=== PATIENT | female | born 2000 | race Caucasian/White ===

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

== ENCOUNTER 2019-02-24 16:01 | Emergency (ER) | payer MEDICAID ==
--- NOTE | 2019-02-24 16:23 | EDM.PDOC ---
ED HPI GENERAL MEDICAL PROBLEM - General Chief Complaint: Neurological Problem Stated Complaint: seizure disorder Time Seen by Provider: 02/24/19 16:15 Source of Information: Reports: Patient History Limitations: Reports: No Limitations - History of Present Illness INITIAL COMMENTS - FREE TEXT/NARRATIVE: Is a 18-year-old female who is currently has a known history of seizures which she is on Keppra. Patient had a seizure 2 days ago after missing her morning dose of Keppra. She is followed by neurologist in [facility]. She feels similar to how she is felt in the past prior to having seizures. This includes left sided muscle spasms and feeling lightheaded. H she has been taking her meds and is not been drinking any alcohol. She denies a current headache or vomiting or diarrhea. Patient has been eating meals. Denies any numbness or paresthesias. Duration: Day(s): (2) Severity: Mild Improves with: Reports: None Worsens with: Reports: None Associated Symptoms: Reports: No Other Symptoms - Related Data Allergies Allergy/AdvReac Type Severity Reaction Status Date / Time No Known Allergies Allergy Verified 02/24/19 16:21 Home Meds: Home Meds Sertraline [Zoloft] 50 mg PO DAILY 12/08/18 [History] levETIRAcetam [Keppra] 500 mg PO BID 12/08/18 [History] Past Medical History - Past Health History Medical/Surgical History: Denies Medical/Surgical History HEENT History: Reports: None Cardiovascular History: Reports: None Respiratory History: Reports: None Gastrointestinal History: Reports: None Genitourinary History: Reports: None IMPROVEMENT RN History: Reports: None Musculoskeletal History: Reports: Other (See Below) 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 Neurological History: Reports: Cerebral Palsy, Seizure Psychiatric History: Reports: Anxiety, Depression Endocrine/Metabolic History: Reports: None Hematologic History: Reports: None Immunologic History: Reports: None Oncologic (Cancer) History: Reports: None Dermatologic History: Reports: None - Infectious Disease History Infectious Disease History: Reports: None - Past Surgical History Head Surgeries/Procedures: Reports: None HEENT Surgical History: Reports: None Cardiovascular Surgical History: Reports: None Respiratory Surgical History: Reports: None GI Surgical History: Reports: None Female Surgical History: Reports: None Endocrine Surgical History: Reports: None Neurological Surgical History: Reports: None Musculoskeletal Surgical History: Reports: Other (See Below) Other Musculoskeletal Surgeries/Procedures:: achiles tendon lengthened left side Oncologic Surgical History: Reports: None Dermatological Surgical History: Reports: None Social & Family History - Family History Family Medical History: Noncontributory - Caffeine Use Caffeine Use: Reports: None ED ROS GENERAL - Review of Systems Review Of Systems: Comprehensive ROS is negative, except as noted in HPI. ED EXAM, NEURO - Physical Exam Exam: See Below Text/Narrative:: Exam: See Below Exam Limited By: No Limitations Head: Atraumatic Neck: Normal Inspection. No: Carotid Bruit, Lymphadenopathy (R) Respiratory/Chest: No Respiratory Distress, Lungs Clear, Normal Breath Sounds, No Accessory Muscle Use. No: Chest Non-Tender Cardiovascular: Normal Peripheral Pulses, Regular Rate, Rhythm, No Edema, No JVD GI/Abdominal: Normal Bowel Sounds, Tender. No: Non-Tender, Splenomegaly Back Exam: Normal Inspection. No: CVA Tenderness (R) Extremities: Normal Inspection. No: No Pedal Edema Neurological: Alert, Oriented, Normal Cognition Psychiatric: Normal Affect Skin Exam: Warm Lymphatic: No Adenopathy Course - Vital Signs Last Recorded V/S: Last Vital Signs Temp 36.2 C 02/24/19 17:26 Pulse 73 02/24/19 17:26 Resp 16 02/24/19 17:26 BP 107/73 02/24/19 17:26 Pulse Ox 99 02/24/19 17:26 - Orders/Labs/Meds Orders: Active Orders 24 hr Category Date Time Status LEVETIRACETAM, S [REF] Stat Lab 02/24/19 16:16 Received Labs: Laboratory Tests 02/24/19 02/24/19 Range/Units 16:16 16:16 WBC 9.69 (4.0-11.0) K/uL RBC 4.74 (4.30-5.90) M/uL Hgb 13.6 (12.0-16.0) g/dL Hct 40.6 (36.0-46.0) % MCV 85.7 (80.0-98.0) fL MCH 28.7 (27.0-32.0) pg MCHC 33.5 (31.0-37.0) g/dL RDW Std Deviation 40.5 (28.0-62.0) fl RDW Coeff of Lopez 13 (11.0-15.0) % Plt Count 208 (150-400) K/uL MPV 10.40 (7.40-12.00) fL Neut % (Auto) 66.9 (48.0-80.0) % Lymph % (Auto) 23.1 (16.0-40.0) % Wells % (Auto) 9.3 (0.0-15.0) % Eos % (Auto) 0.7 (0.0-7.0) % Baso % (Auto) 0.0 (0.0-1.5) % Neut # (Auto) 6.5 H (1.4-5.7) K/uL Lymph # (Auto) 2.2 (0.6-2.4) K/uL Wells # (Auto) 0.9 H (0.0-0.8) K/uL Eos # (Auto) 0.1 (0.0-0.7) K/uL Baso # (Auto) 0.0 (0.0-0.1) K/uL Nucleated RBC % 0.0 /100WBC Nucleated RBCs # 0 K/uL Sodium 138 (136-145) mmol/L Potassium 3.9 (3.5-5.1) mmol/L Chloride 101 (98-107) mmol/L Carbon Dioxide 25.9 (21.0-32.0) mmol/L BUN 5 L (7.0-18.0) mg/dL Creatinine 0.6 (0.6-1.0) mg/dL Est Cr Clr Drug Dosing 146.66 mL/min Estimated GFR (MDRD) > 60.0 ml/min Glucose 77 (74-106) mg/dL Calcium 8.7 (8.5-10.1) mg/dL Total Bilirubin 0.3 (0.2-1.0) mg/dL AST 16 (15-37) IU/L ALT 14 (14-63) IU/L Alkaline Phosphatase 42 L (46-116) U/L Total Protein 7.7 (6.4-8.2) g/dL Albumin 3.4 (3.4-5.0) g/dL Globulin 4.3 H (2.6-4.0) g/dL Albumin/Globulin Ratio 0.8 L (0.9-1.6) - Re-Assessments/Exams Free Text/Narrative Re-Assessment/Exam: 02/24/19 17:28 Lab work is normal. Keppra level is a send out and will not be back today. Patient is asking if she can take half of 1 of her tablets when she is at home since she feels pre-seizure like. I have told her she can until she contacts her neurologist which I am encouraging her to do as soon as possible. Her neurologist is in [facility]. We will call her if her Keppra level is high or low. She should return to ER if symptoms are worse. Departure - Departure Time of Disposition: 17:28 Disposition: Home, Self-Care 01 Condition: Good Clinical Impression: Light-headedness - Discharge Information Instructions: Epilepsy, [id number], Dizziness, [id number] Referrals: PCP,Unobtain [Primary Care Provider] - Forms: ED Department Discharge Additional Instructions: Contact your neurologist as soon as possible. We will call you if your Keppra level is either high or low. Return to ER if repeat seizure you are feeling worse. The following information is given to patients seen in the emergency department who are being discharged to home. This information is to outline your options for follow-up care. We provide all patients seen in our emergency department with a follow-up referral. The need for follow-up, as well as the timing and circumstances, are variable depending upon the specifics of your emergency department visit. If you don't have a primary care physician on staff, we will provide you with a referral. We always advise you to contact your personal physician following an emergency department visit to inform them of the circumstance of the visit and for follow-up with them and/or the need for any referrals to a consulting specialist. The emergency department will also refer you to a specialist when appropriate. This referral assures that you have the opportunity for follow-up care with a specialist. All of these measure are taken in an effort to provide you with optimal care, which includes your follow-up. Under all circumstances we always encourage you to contact your private physician who remains a resource for coordinating your care. When calling for follow-up care, please make the office aware that this follow-up is from your recent emergency room visit. If for any reason you are refused follow-up, please contact the [facility] Emergency Department at and asked to speak to the emergency department charge nurse. Sepsis Event Note - Focused Exam Vital Signs: Vital Signs Temp Pulse Resp BP Pulse Ox 02/24/19 17:26 36.2 C 73 16 107/73 99 02/24/19 16:41 65 16 98 02/24/19 16:01 36.2 C 72 16 109/74 99 Date Exam was Performed: 02/24/19 Time Exam was Performed: 17:27 - My Orders Last 24 Hours: My Active Orders 02/24/19 16:16 LEVETIRACETAM, S [REF] Stat - Assessment/Plan Last 24 Hours: My Active Orders 02/24/19 16:16 LEVETIRACETAM, S [REF] Stat
[2019-02-24 17:07] LABS: BLOOD UREA NITROGEN,BUN 5 mg/dL (7.0-18.0); CARBON DIOXIDE,CO2 25.9 mmol/L (21.0-32.0); CHLORIDE,CL 101 mmol/L (98-107); GLUCOSE RANDOM 77 mg/dL (74-106); POTASSIUM,K 3.9 mmol/L (3.5-5.1); SODIUM,NA 138 mmol/L (136-145)
[2019-02-24 17:26] VITALS: BP 107/73; PULSE 73
== END 2019-02-24 17:57 | disposition home or self-care (01) ==
LOC: MW.ED 16:01
DX: R42 Dizziness and giddiness (principal); F41.9 Anxiety disorder, unspecified; F32.9 Major depressive disorder, single episode, unspecified; Z79.899 Other long term (current) drug therapy
CPT/HCPCS: 36415; 80053; 80177; 85025; 99282; 99284

== ENCOUNTER 2019-04-01 16:59 | Emergency (ER) | payer MEDICAID ==
--- NOTE | 2019-04-01 19:28 | EDM.PDOC ---
ED HPI GENERAL MEDICAL PROBLEM - General Chief Complaint: Neuro Symptoms/Deficits Stated Complaint: POSSIBLE SEIZURE Time Seen by Provider: 04/01/19 17:10 Source of Information: Reports: Patient, Family (mother) History Limitations: Reports: No Limitations - History of Present Illness INITIAL COMMENTS - FREE TEXT/NARRATIVE: This 18 year old female is admitted to the ED with a chief complaint of having a seizure while soaking her back in a tub a warm water. She has a history of seizure for 5 years. She is 25 weeks and is taking Keppra 750mg BID. She states that this is the only medication that is safe for her baby. She states that she feels that the dose is not enough. The mother who witness the seizure said that it was shaking of all extremities. She states that the seizure lasted for less than one minute. She never lost consciousness but was slow to respond and that she looked tired. No loss of bladder control. 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: Reports: Musculoskeletal History: Reports: Other (See Below) 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 Neurological History: Reports: Cerebral Palsy, Seizure Psychiatric History: Reports: Anxiety, Depression Endocrine/Metabolic History: Reports: None Hematologic History: Reports: None Immunologic History: Reports: None Oncologic (Cancer) History: Reports: None Dermatologic History: Reports: None - Infectious Disease History Infectious Disease History: Reports: None - Past Surgical History Head Surgeries/Procedures: Reports: None HEENT Surgical History: Reports: None Cardiovascular Surgical History: Reports: None Respiratory Surgical History: Reports: None GI Surgical History: Reports: None Female Surgical History: Reports: None Endocrine Surgical History: Reports: None Neurological Surgical History: Reports: None Musculoskeletal Surgical History: Reports: Other (See Below) Other Musculoskeletal Surgeries/Procedures:: achiles tendon lengthened left side Oncologic Surgical History: Reports: None Dermatological Surgical History: Reports: None Social & Family History - Family History Family Medical History: Noncontributory - Tobacco Use Smoking Status *Q: Never Smoker - Caffeine Use Caffeine Use: Reports: Coffee - Recreational Drug Use Recreational Drug Use: No ED ROS GENERAL - Review of Systems Review Of Systems: See Below Constitutional: Reports: No Symptoms HEENT: Reports: No Symptoms Respiratory: Reports: No Symptoms Cardiovascular: Reports: No Symptoms Endocrine: Reports: No Symptoms GI/Abdominal: Reports: No Symptoms : Reports: No Symptoms Musculoskeletal: Reports: No Symptoms Skin: Reports: No Symptoms Neurological: Reports: Seizure (lasted less than one minute (shaking of all extremities)) Psychiatric: Reports: No Symptoms - Physical Exam Exam: See Below Exam Limited By: No Limitations General Appearance: Alert, WD/WN, No Apparent Distress Eye Exam: Bilateral Eye: EOMI, Normal Inspection, PERRL (3.4mm) Ears: Normal External Exam, Normal Canal, Hearing Grossly Normal, Normal TMs Nose: Normal Inspection, Normal Mucosa, No Blood Throat/Mouth: Normal Inspection, Normal Lips, Normal Teeth, Normal Gums, Normal Oropharynx, Normal Voice, No Airway Compromise Head Exam: Atraumatic, Normocephalic Neck: Normal Inspection, Supple, Non-Tender, Full Range of Motion Respiratory/Chest: No Respiratory Distress, Lungs Clear, Normal Breath Sounds, No Accessory Muscle Use, Chest Non-Tender Cardiovascular: Normal Peripheral Pulses, Regular Rate, Rhythm, No Edema, No Gallop, No JVD, No Murmur, No Rub GI/Abdominal: Normal Bowel Sounds, Soft, Non-Tender, No Organomegaly, No Distention, No Abnormal Bruit, No Mass, Other (fundal height is 2 inches above the unbilicus) (Female) Exam: Deferred Rectal (Female) Exam: Deferred Neuro Exam (Abbreviated): Alert, Oriented, CN II-XII Intact, Normal Cognition, Normal Gait, Normal Reflexes, No Motor/Sensory Deficits DTR: 3+: Bicep (R), Bicep (L), Patella (R), Patella (L) Back Exam: Normal Inspection, Full Range of Motion, NT Extremities: Normal Inspection, Normal Range of Motion, Non-Tender, No Pedal Edema, Normal Capillary Refill Psychiatric: Normal Affect, Normal Mood Skin Exam: Warm, Dry, Intact, Normal Color, No Rash Course - Vital Signs Text/Narrative:: The patient clinical course was unremarkable. She received Keppra 750mg IV. Her vital signs remained stable through her stay. heart tones recorded by the nurse was 139/bpm. Re-evaluation of her neuro status is unremarkable. She is fully awake and alert. She will be discharged. She and her mother agrees with the discharge plan. Last Recorded V/S: Last Vital Signs Temp 96.8 F 04/01/19 17:07 Pulse 109 H 04/01/19 17:07 Resp 16 04/01/19 17:07 BP 128/38 L 04/01/19 17:07 Pulse Ox 96 04/01/19 17:07 - Orders/Labs/Meds Orders: Active Orders 24 hr Category Date Time Status HCG QUANTITATIVE [CHEM] Stat Lab 04/01/19 18:41 Received UA W/MESFIN RFLX IF INDICATED [URIN] Stat Lab 04/01/19 18:27 Ordered levETIRAcetam [Keppra] 1,000 mg Med 04/01/19 18:30 Active Dextrose 5% in Water 100 ml IV Q12H Medication Orders Levetiracetam 1,000 mg/ (Dextrose/Water) 110 mls @ 440 mls/hr IV Q12H [facility] Last Admin: 04/01/19 19:09 Dose: 440 mls/hr Meds: Medications Generic Name Dose Route Start Last Admin Trade Name Freq PRN Reason Stop Dose Admin Levetiracetam 1,000 mg/ 110 mls @ 440 mls/hr 04/01/19 18:30 04/01/19 19:09 Dextrose/Water IV 440 mls/hr Q12H D[facility]BY Administration Departure - Departure Time of Disposition: 19:37 Disposition: Home, Self-Care 01 Condition: Good Clinical Impression: Seizure disorder - Discharge Information *PRESCRIPTION DRUG MONITORING PROGRAM REVIEWED*: Yes *COPY OF PRESCRIPTION DRUG MONITORING REPORT IN PATIENT LAURA: Yes Instructions: Seizure, Adult, [id number], and Epilepsy Referrals: Susan Richardson CNM [Primary Care Provider] - Additional Instructions: Take your Keppra starting tomorrow 750mg three times a day until you see your neurologist (Dr. Gallardo) in [place], [place]. Follow up with your OB doctor in the next two to four days. Drink plenty of clear liquids for the next 24-48 hours. Rest for the next 24 hours. Return to the ED if your condition gets worse or should you have any questions or concerns. The following information is given to patients seen in the emergency department who are being discharged to home. This information is to outline your options for follow-up care. We provide all patients seen in our emergency department with a follow-up referral. The need for follow-up, as well as the timing and circumstances, are variable depending upon the specifics of your emergency department visit. If you don't have a primary care physician on staff, we will provide you with a referral. We always advise you to contact your personal physician following an emergency department visit to inform them of the circumstance of the visit and for follow-up with them and/or the need for any referrals to a consulting specialist. The emergency department will also refer you to a specialist when appropriate. This referral assures that you have the opportunity for follow-up care with a specialist. All of these measure are taken in an effort to provide you with optimal care, which includes your follow-up. Under all circumstances we always encourage you to contact your private physician who remains a resource for coordinating your care. When calling for follow-up care, please make the office aware that this follow-up is from your recent emergency room visit. If for any reason you are refused follow-up, please contact the [facility] Emergency Department at and asked to speak to the emergency department charge nurse. Sepsis Event Note - Evaluation Sepsis Screening Result: No Definite Risk - Focused Exam Vital Signs: Vital Signs Temp Pulse Resp BP Pulse Ox 04/01/19 17:07 96.8 F 109 H 16 128/38 L 96 Date Exam was Performed: 04/01/19 Time Exam was Performed: 19:20 - My Orders Last 24 Hours: My Active Orders 04/01/19 18:27 UA W/MESFIN RFLX IF INDICATED [URIN] Stat 04/01/19 18:30 levETIRAcetam [Keppra] 1,000 mg Dextrose 5% in Water 100 ml IV Q12H 04/01/19 18:41 HCG QUANTITATIVE [CHEM] Stat - Assessment/Plan Last 24 Hours: My Active Orders 04/01/19 18:27 UA W/MESFIN RFLX IF INDICATED [URIN] Stat 04/01/19 18:30 levETIRAcetam [Keppra] 1,000 mg Dextrose 5% in Water 100 ml IV Q12H 04/01/19 18:41 HCG QUANTITATIVE [CHEM] Stat
[2019-04-01 20:03] VITALS: BP 102/66; PULSE 84
== END 2019-04-01 20:03 | disposition home or self-care (01) ==
LOC: MW.ED 16:59
DX: O99.352 Diseases of the nervous system complicating pregnancy, second trimester (principal); G40.909 Epilepsy, unspecified, not intractable, without status epilepticus; Z79.899 Other long term (current) drug therapy; Z3A.25 25 weeks gestation of pregnancy
CPT/HCPCS: 36415; 84702; 96365; 99284; J1953; J7060; 99283

== ENCOUNTER 2019-06-28 00:07 | Inpatient (IN) | payer MEDICAID ==
[2019-06-28] MEDS ORDERED: Water For Irrigation,Sterile 1,000 ML Container IRR PRN (00:21)
[2019-06-28] MEDS ORDERED: Sodium Chloride 0.9% 2.5 ML Syringe FLUSH PRN (00:21)
[2019-06-28] MEDS ORDERED: Misoprostol 200 MCG Tab PO PRN (00:21)
[2019-06-28] MEDS ORDERED: Sodium Chloride 0.9% 10 ML Syringe FLUSH PRN (00:21)
[2019-06-28] MEDS ORDERED: Butorphanol 1 MG/ML SDV IVPUSH PRN (00:21)
[2019-06-28] MEDS ORDERED: Sodium Chloride 0.9% 10 ML SDV IV PRN (00:21)
[2019-06-28] MEDS ORDERED: Carboprost Tromethamine 250 MCG/1 ML Amp IM PRN (00:21)
[2019-06-28] MEDS ORDERED: Nalbuphine 10 MG/1 ML Vial IVPUSH PRN (00:21)
[2019-06-28] MEDS ORDERED: Methylergonovine 0.2 MG/1 ML Amp IM PRN (00:21)
[2019-06-28] MEDS ORDERED: Tranexamic Acid 1,000 MG in Sodium Chloride 0.9% 100 ML IV PRN (00:21)
[2019-06-28] MEDS ORDERED: Lidocaine 1% 50 ML MDV INJECT PRN (00:21)
[2019-06-28] MEDS ORDERED: Misoprostol 25 MCG (1/4 of 100 MCG) Tab VAG PRN ×2 (00:26)
[2019-06-28] MEDS ORDERED: Terbutaline 1 MG/ML SDV SUBCUT PRN (00:26)
[2019-06-28] MEDS ORDERED: Oxytocin/0.9 % Sodium Chloride 30 UNIT/500 ML BAG IV SCH ×2 (00:30)
--- NOTE | 2019-06-28 04:39 | PCM.PRNOTE ---
- Free Text/Narrative Note: Anes NOte I was called to provide IV access. A 22TN was placed inner aspect of left forearm. Runs well. 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
[2019-06-28] MEDS ORDERED: Misoprostol 25 MCG (1/4 of 100 MCG) Tab PO SCH (04:45)
[2019-06-28] MEDS: Lactated Ringers 1,000 ML IV SCH ×3 (04:52→11:54)
[2019-06-28] MEDS: levETIRAcetam 500 MG Tab PO SCH ×3 (09:34→22:54)
[2019-06-28] MEDS: carBAMazepine 200 MG Tab PO SCH ×4 (09:40→22:08)
[2019-06-28] MEDS ORDERED: fentaNYL 100 MCG/2 ML SDV ONE (10:31)
[2019-06-28] MEDS ORDERED: Ropivacaine HCl/PF 100 ML ONE (10:31)
[2019-06-28] MEDS ORDERED: Ropivacaine 0.2% PF 2 MG/ML 20 ML SDV ONE (10:31)
--- NOTE | 2019-06-28 11:55 | PCM.PREANE ---
Preanesthetic Assessment - Procedure Proposed Procedure: AURA - Anesthesia/Transfusion/Family Hx Anesthesia History: Prior Anesthesia Without Reaction Family History of Anesthesia Reaction: No Transfusion History: No Prior Transfusion(s) Intubation History: Unknown Additional History: History of CP. 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 Also has severe Scoliosis. - Review of Systems General: No Symptoms Pulmonary: No Symptoms Cardiovascular: No Symptoms Gastrointestinal: No Symptoms Neurological: Seizure, Other (CP) Other: Reports: Anxiety (Significant Scoliosis) - Physical Assessment Height: 1.68 m Weight: 86.183 kg ASA Class: 3 Mental Status: Alert & Oriented x3 Airway Class: Mallampati = 2 Dentition: Reports: Normal Dentition Thyro-Mental Finger Breadths: 3 Mouth Opening Finger Breadths: 3 ROM/Head Extension: Full Lungs: Clear to Auscultation Cardiovascular: Regular Rate - Lab Values: Laboratory Last Values WBC 9.23 K/uL (4.0-11.0) 06/28/19 02:35 RBC 4.27 M/uL (4.30-5.90) L 06/28/19 02:35 Hgb 10.9 g/dL (12.0-16.0) L 06/28/19 02:35 Hct 34.2 % (36.0-46.0) L 06/28/19 02:35 MCV 80.1 fL (80.0-98.0) 06/28/19 02:35 MCH 25.5 pg (27.0-32.0) L 06/28/19 02:35 MCHC 31.9 g/dL (31.0-37.0) 06/28/19 02:35 RDW Std Deviation 38.5 fl (28.0-62.0) 06/28/19 02:35 RDW Coeff of Lopez 13 % (11.0-15.0) 06/28/19 02:35 Plt Count 277 K/uL (150-400) 06/28/19 02:35 MPV 10.30 fL (7.40-12.00) 06/28/19 02:35 Nucleated RBC % 0.0 /100WBC 06/28/19 02:35 Nucleated RBCs # 0 K/uL 06/28/19 02:35 Blood Type O POSITIVE 06/28/19 02:35 Antibody Screen NEGATIVE 05/06/20 02:35 - Allergies Allergies/Adverse Reactions: Allergies Allergy/AdvReac Type Severity Reaction Status Date / Time No Known Allergies Allergy Verified 06/28/19 00:16 - Acknowledgements Anesthesia Type Planned: Epidural Pt an Appropriate Candidate for the Planned Anesthesia: Yes Alternatives and Risks of Anesthesia Discussed w Pt/Guardian: Yes Pt/Guardian Understands and Agrees with Anesthesia Plan: Yes Additional Comments: Discussed. Aware of issues. 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: Musculoskeletal History: Reports: Other (See Below) 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 Neurological History: Reports: Cerebral Palsy, Seizure Psychiatric History: Reports: Anxiety, Depression Endocrine/Metabolic History: Reports: None Hematologic History: Reports: None Immunologic History: Reports: None Oncologic (Cancer) History: Reports: None Dermatologic History: Reports: None - Infectious Disease History Infectious Disease History: Reports: None - Past Surgical History Head Surgeries/Procedures: Reports: None HEENT Surgical History: Reports: None Cardiovascular Surgical History: Reports: None Respiratory Surgical History: Reports: None GI Surgical History: Reports: None Female Surgical History: Reports: None Endocrine Surgical History: Reports: None Neurological Surgical History: Reports: None Musculoskeletal Surgical History: Reports: Other (See Below) Other Musculoskeletal Surgeries/Procedures:: achiles tendon lengthened left side Oncologic Surgical History: Reports: None Dermatological Surgical History: Reports: None - HOME MEDS Home Medications: Home Meds levETIRAcetam [Keppra] 750 mg PO TID 12/08/18 [History] Pnv No.95/Ferrous Fum/Folic AC [ Vitamins Tablet] 1 tab PO DAILY [History] carBAMazepine 200 mg PO TID 05/29/19 [History] - CURRENT (IN HOUSE) MEDS Current Meds: Current Medications Butorphanol Tartrate (Stadol) 1 mg IVPUSH Q1H PRN PRN Reason: Pain Carbamazepine (Tegretol Tab) 200 mg PO TID DARBY Last Admin: 06/28/19 09:40 Dose: Not Given Carboprost Tromethamine (Hemabate Ds) 250 mcg IM ASDIRECTED PRN PRN Reason: Post Hemorrhage Lactated Ringer's (Ringers, Lactated) 1,000 mls @ 150 mls/hr IV ASDIRECTED [facility] Last Admin: 06/28/19 08:27 Dose: 150 mls/hr Oxytocin/Sodium Chloride (Oxytocin 30 Unit/500 Ml-Ns) 30 unit in 500 mls @ 500 mls/hr IV TITRATE DARBY Tranexamic Acid 1,000 mg/ (Sodium Chloride) 110 mls @ 660 mls/hr IV ONETIME PRN PRN Reason: Bleeding Oxytocin/Sodium Chloride (Oxytocin 30 Unit/500 Ml-Ns) 30 unit in 500 mls @ 2 mls/hr IV TITRATE DARBY; Protocol Levetiracetam (Keppra) 750 mg PO TID [facility] Last Admin: 06/28/19 09:34 Dose: 750 mg Lidocaine HCl (Xylocaine 1%) 50 ml INJECT ONETIME PRN PRN Reason: Laceration repair Methylergonovine Maleate (Methergine) 0.2 mg IM ASDIRECTED PRN PRN Reason: Post Hemorrhage Misoprostol (Cytotec) 200 mcg PO ONETIME PRN PRN Reason: Post Hemorrhage Misoprostol (Cytotec) 25 mcg VAG ONETIME PRN PRN Reason: Cervical Ripening Misoprostol (Cytotec) 25 mcg VAG Q4H PRN PRN Reason: Cervical Ripening Last Admin: 06/28/19 04:53 Dose: 25 mcg Misoprostol (Cytotec) 25 mcg PO Q4H [facility] Last Admin: 06/28/19 04:52 Dose: 25 mcg Nalbuphine HCl (Nubain) 10 mg IVPUSH Q1H PRN PRN Reason: Pain (severe 7-10) Sodium Chloride (Saline Flush) 10 ml FLUSH ASDIRECTED PRN PRN Reason: Keep Vein Open Sodium Chloride (Saline Flush) 2.5 ml FLUSH ASDIRECTED PRN PRN Reason: Keep Vein Open Sodium Chloride (Normal Saline) 10 ml IV ASDIRECTED PRN PRN Reason: IV Use Sterile Water (Sterile Water For Irrigation) 1,000 ml IRR ASDIRECTED PRN PRN Reason: delivery Terbutaline Sulfate (Brethine) 0.25 mg SUBCUT ASDIRECTED PRN PRN Reason: Tacysystole Discontinued Medications Fentanyl (Sublimaze) Confirm Administered Dose 100 mcg .ROUTE .STK-MED ONE Stop: 06/28/19 10:32 Ropivacaine (Naropin 0.2%) Confirm Administered Dose 100 mls @ as directed .ROUTE .ST-MED ONE Stop: 06/28/19 10:32 Ropivacaine (Naropin 0.2%) Confirm Administered Dose 20 ml .ROUTE .STK-MED ONE Stop: 06/28/19 10:32
--- NOTE | 2019-06-28 12:06 | PCM.SN.2 ---
- Free Text/Narrative Note: Requested for AURA on . Significant Hx of CP, Seizures and Scoliosis. Discussed, ? answered. Permit signed. Prep with Chloro-Prep at L3-4 Total 6ml 1% lidocaine given. Space via SARA with air/saline, reconfirmed with 3ml saline. 1st pass good SARA, pt. c/o'd L sided pain which didn't resolve. Needle remove and readjusted at 2 places @ L3-4. Good SARA on 3rd pass. Cath to 8cm without issues. Occlusive drsg. TEST DOSE NEGATIVE Bolus given slowly. Pain slowly improving. VSS 11:55: Pain 03/03. Infusion started at 8ml/hr with 4ml bolus q15. Tolerated well. No problems noted at present.
--- NOTE | 2019-06-28 14:09 | PCM.DEL ---
L & D Note - General Info Date of Service: 06/28/19 Mother's Due Date: 07/12/19 - Delivery Note Labor: Augmented by Oxytocin Cervical Ripening Method: Misoprostil Delivery Outcome: Livebirth Delivery Mode: Spontaneous Presentation: Vertex Nuchal Cord: Present Anesthesia Type: Epidural Amniotic Fluid Description: Clear Episiotomy Type: None Laceration: None Placenta: Intact, Spontaneous Cord: 3 Vessels Score 1 min: 8 Score 5 min: 8 Second Stage Interventions: Reports: Pushing, Pulls Own Legs Back Delivery Comments (Free Text/Narrative):: of viable female. Head delivered with good pushing, nuchal x1 reduced over head. Shoulders and body followed. placed on mothers abd with RN at for evaluation. Delayed cord clamping. Pitocin to IVF. Cord clamped and cut. Cord blood collected. Placenta delivered grossly intact. Inspection noted intact perineum. Bimanual normal. Placenta intact with 3VC. EBL 100cc. APGARS 8/ 8. Wt: pending bonding. Mother and baby stable. Induction Criteria - Rousseau Score Rousseua Score Dilation: 3-4 cm Rousseau Score Effacement: 60-70% Rousseau Score 's Station: -2 Rousseau Score Consistency: Soft Rousseau Score Cervix Position: Anterior Rousseau Score Total: 9 Rousseau Score Presenting Part: Reports: Cephalic - Induction Gestational Age >/= 39 wks: No Medical Indication: CP, Seizures, HROB Estimated Pelvis: Reports: Adequate Reassuring Monitoring Strip: Yes Absence of Tachy Systole: Yes - General Info Date of Service: 06/28/19 Functional Status: Reports: Pain Controlled - Review of Systems General: Reports: No Symptoms HEENT: Reports: No Symptoms Pulmonary: Reports: No Symptoms Cardiovascular: Reports: No Symptoms Gastrointestinal: Reports: No Symptoms Genitourinary: Reports: No Symptoms Musculoskeletal: Reports: No Symptoms Skin: Reports: No Symptoms Neurological: Reports: No Symptoms Psychiatric: Reports: No Symptoms - Patient Data Weight - Most Recent: 86.183 kg Lab Results Last 24 Hours: Laboratory Results - last 24 hr 06/28/19 06/28/19 Range/Units 02:35 02:35 WBC 9.23 (4.0-11.0) K/uL RBC 4.27 L (4.30-5.90) M/uL Hgb 10.9 L (12.0-16.0) g/dL Hct 34.2 L (36.0-46.0) % MCV 80.1 (80.0-98.0) fL MCH 25.5 L (27.0-32.0) pg MCHC 31.9 (31.0-37.0) g/dL RDW Std Deviation 38.5 (28.0-62.0) fl RDW Coeff of Lopez 13 (11.0-15.0) % Plt Count 277 (150-400) K/uL MPV 10.30 (7.40-12.00) fL Nucleated RBC % 0.0 /100WBC Nucleated RBCs # 0 K/uL Blood Type O POSITIVE Antibody Screen NEGATIVE Med Orders - Current: Current Medications Butorphanol Tartrate (Stadol) 1 mg IVPUSH Q1H PRN PRN Reason: Pain Carbamazepine (Tegretol Tab) 200 mg PO TID [facility] Last Admin: 06/28/19 12:40 Dose: 200 mg Carboprost Tromethamine (Hemabate Ds) 250 mcg IM ASDIRECTED PRN PRN Reason: Post Hemorrhage Lactated Ringer's (Ringers, Lactated) 1,000 mls @ 150 mls/hr IV ASDIRECTED [facility] Last Admin: 06/28/19 11:54 Dose: 150 mls/hr Oxytocin/Sodium Chloride (Oxytocin 30 Unit/500 Ml-Ns) 30 unit in 500 mls @ 500 mls/hr IV TITRATE [facility] Tranexamic Acid 1,000 mg/ (Sodium Chloride) 110 mls @ 660 mls/hr IV ONETIME PRN PRN Reason: Bleeding Oxytocin/Sodium Chloride (Oxytocin 30 Unit/500 Ml-Ns) 30 unit in 500 mls @ 2 mls/hr IV TITRATE [facility]; Protocol Last Titration: 06/28/19 12:07 Dose: 4 munits/min, 4 mls/hr Levetiracetam (Keppra) 750 mg PO TID [facility] Last Admin: 06/28/19 09:34 Dose: 750 mg Lidocaine HCl (Xylocaine 1%) 50 ml INJECT ONETIME PRN PRN Reason: Laceration repair Methylergonovine Maleate (Methergine) 0.2 mg IM ASDIRECTED PRN PRN Reason: Post Hemorrhage Misoprostol (Cytotec) 200 mcg PO ONETIME PRN PRN Reason: Post Hemorrhage Misoprostol (Cytotec) 25 mcg VAG ONETIME PRN PRN Reason: Cervical Ripening Misoprostol (Cytotec) 25 mcg VAG Q4H PRN PRN Reason: Cervical Ripening Last Admin: 06/28/19 04:53 Dose: 25 mcg Misoprostol (Cytotec) 25 mcg PO Q4H [facility] Last Admin: 06/28/19 04:52 Dose: 25 mcg Nalbuphine HCl (Nubain) 10 mg IVPUSH Q1H PRN PRN Reason: Pain (severe 7-10) Sodium Chloride (Saline Flush) 10 ml FLUSH ASDIRECTED PRN PRN Reason: Keep Vein Open Sodium Chloride (Saline Flush) 2.5 ml FLUSH ASDIRECTED PRN PRN Reason: Keep Vein Open Sodium Chloride (Normal Saline) 10 ml IV ASDIRECTED PRN PRN Reason: IV Use Sterile Water (Sterile Water For Irrigation) 1,000 ml IRR ASDIRECTED PRN PRN Reason: delivery Terbutaline Sulfate (Brethine) 0.25 mg SUBCUT ASDIRECTED PRN PRN Reason: Tacysystole Discontinued Medications Fentanyl (Sublimaze) Confirm Administered Dose 100 mcg .ROUTE .STK-MED ONE Stop: 06/28/19 10:32 Ropivacaine (Naropin 0.2%) Confirm Administered Dose 100 mls @ as directed .ROUTE .STK-MED ONE Stop: 06/28/19 10:32 Ropivacaine (Naropin 0.2%) Confirm Administered Dose 20 ml .ROUTE .STK-MED ONE Stop: 06/28/19 10:32 - Exam General: Alert, Oriented, Cooperative, No Acute Distress, Mild Distress Lungs: Normal Respiratory Effort GI/Abdominal Exam: Soft, Non-Tender (Female) Exam: Normal External Exam, Normal Bimanual Exam, Vaginal Bleeding. No: Cervical Lesions, Vaginal Lesions, Vaginal Tears Back Exam: Normal Inspection Extremities: Normal Inspection, Non-Tender, No Pedal Edema Skin: Warm, Dry, Intact Wound/Incisions: Healing Well Neurological: No New Focal Deficit, Normal Speech, Normal Tone Psy/Mental Status: Alert, Normal Affect, Normal Mood - Problem List & Annotations (1) (normal spontaneous vaginal delivery) SNOMED Code(s): 85610145, 536067620 Code(s): O80 - ENCOUNTER FOR FULL-TERM UNCOMPLICATED DELIVERY Status: Acute Priority: High Current Visit: Yes - Problem List Review Problem List Initiated/Reviewed/Updated: Yes - My Orders Last 24 Hours: My Active Orders 06/28/19 09:00 carBAMazepine [TEGretol Tab] 200 mg PO TID levETIRAcetam [Keppra] 750 mg PO TID 06/28/19 Breakfast Regular Diet [DIET] - Plan Plan:: Delivery A: of viable female. APGARS 8/8, Wt: pending bonding. Intact, EBL 100cc. Stable P: Routine pp plan of care.
[2019-06-28] MEDS ORDERED: Docusate Sodium 100 MG Cap PO PRN (14:13)
[2019-06-28] MEDS ORDERED: Lanolin 100% Cream 7 GM Tube TOP PRN (14:13)
[2019-06-28] MEDS ORDERED: Ibuprofen 800 MG Tab PO PRN (14:13)
[2019-06-28] MEDS ORDERED: Witch Hazel Medicated Pads 40/Jar TOP PRN (14:13)
[2019-06-28] MEDS ORDERED: Benzocaine/Menthol 20%-0.5% Spray 78 GM Cannister TOP PRN (14:13)
[2019-06-28] MEDS ORDERED: Ibuprofen 400 MG Tab PO PRN (14:13)
[2019-06-28] MEDS ORDERED: Bisacodyl 10 MG Supp RECTAL PRN (14:13)
[2019-06-28] MEDS ORDERED: Acetaminophen 500 MG Tab PO PRN ×2 (14:13)
--- NOTE | 2019-06-28 21:23 | PCM48HPAN ---
Post Anesthesia Note - EVALUATION WITHIN 48HRS OF ANESTHETIC Vital Signs in Normal Range: Yes Patient Participated in Evaluation: Yes Respiratory Function Stable: Yes Airway Patent: Yes Cardiovascular Function Stable: Yes Hydration Status Stable: Yes Pain Control Satisfactory: Yes Nausea and Vomiting Control Satisfactory: Yes Mental Status Recovered: Yes Vital Signs: Last Vital Signs Temp 36.8 C 06/28/19 20:00 Pulse 78 06/28/19 20:00 Resp 16 06/28/19 20:00 BP 111/78 06/28/19 20:00 Pulse Ox 97 06/28/19 20:00 - COMMENTS/OBSERVATIONS Free Text/Narrative:: Did well. No problems noted.
[2019-06-29 04:16] VITALS: BP 105/77; PULSE 71
[2019-06-29] MEDS: carBAMazepine 200 MG Tab PO SCH ×2 (06:27→14:04)
[2019-06-29] MEDS: levETIRAcetam 500 MG Tab PO SCH ×2 (06:28→14:05)
--- NOTE | 2019-06-29 09:38 | PCM.PNPP ---
- General Info Date of Service: 06/29/19 Functional Status: Reports: Pain Controlled, Tolerating Diet, Ambulating - Review of Systems General: Reports: No Symptoms HEENT: Reports: No Symptoms Pulmonary: Reports: No Symptoms Cardiovascular: Reports: No Symptoms Gastrointestinal: Reports: No Symptoms Genitourinary: Reports: No Symptoms Musculoskeletal: Reports: No Symptoms Skin: Reports: No Symptoms Neurological: Reports: No Symptoms Psychiatric: Reports: No Symptoms - General Info Date of Service: 06/29/19 - Patient Data Vital Signs - Most Recent: Last Vital Signs Temp 97.9 F 06/29/19 04:00 Pulse 71 06/29/19 04:00 Resp 16 06/29/19 04:00 BP 105/77 06/29/19 04:00 Pulse Ox 96 06/29/19 04:00 Weight - Most Recent: 190 lb Lab Results - Last 24 Hours: Laboratory Results - last 24 hr 06/29/19 Range/Units 05:48 Hgb 11.3 L (12.0-16.0) g/dL Hct 35.4 L (36.0-46.0) % Med Orders - Current: Current Medications Acetaminophen (Tylenol Extra Strength) 500 mg PO Q4H PRN PRN Reason: Pain Acetaminophen (Tylenol Extra Strength) 1,000 mg PO Q4H PRN PRN Reason: Pain Last Admin: 06/29/19 03:08 Dose: 1,000 mg Benzocaine/Menthol (Dermoplast Pain Relief 20%-0.5% [place]) 78 gm TOP ASDIRECTED PRN PRN Reason: Perineal Comfort Measure Bisacodyl (Dulcolax) 10 mg RECTAL ONETIME PRN PRN Reason: Constipation Carbamazepine (Tegretol Tab) 200 mg PO TID [facility] Last Admin: 06/29/19 06:27 Dose: 200 mg Docusate Sodium (Colace) 100 mg PO BID PRN PRN Reason: Constipation Last Admin: 06/28/19 20:40 Dose: 100 mg Emollient Ointment (Lansinoh Hpa) 0 gm TOP ASDIRECTED PRN PRN Reason: Sore Nipples Ibuprofen (Motrin) 400 mg PO Q4H PRN PRN Reason: Pain Ibuprofen (Motrin) 800 mg PO Q6H PRN PRN Reason: Pain Last Admin: 06/28/19 22:09 Dose: 800 mg Levetiracetam (Keppra) 750 mg PO TID [facility] Last Admin: 06/29/19 06:28 Dose: 750 mg Witch Angelica (Tucks) 1 pad TOP ASDIRECTED PRN PRN Reason: comfort care Discontinued Medications Butorphanol Tartrate (Stadol) 1 mg IVPUSH Q1H PRN PRN Reason: Pain Carboprost Tromethamine (Hemabate Ds) 250 mcg IM ASDIRECTED PRN PRN Reason: Post Hemorrhage Fentanyl (Sublimaze) Confirm Administered Dose 100 mcg .ROUTE .[facility] ONE Stop: 06/28/19 10:32 Lactated Ringer's (Ringers, Lactated) 1,000 mls @ 150 mls/hr IV ASDIRECTED [facility] Last Admin: 06/28/19 11:54 Dose: 150 mls/hr Oxytocin/Sodium Chloride (Oxytocin 30 Unit/500 Ml-Ns) 30 unit in 500 mls @ 500 mls/hr IV TITRATE [facility] Tranexamic Acid 1,000 mg/ (Sodium Chloride) 110 mls @ 660 mls/hr IV ONETIME PRN PRN Reason: Bleeding Oxytocin/Sodium Chloride (Oxytocin 30 Unit/500 Ml-Ns) 30 unit in 500 mls @ 2 mls/hr IV TITRATE [facility]; Protocol Last Titration: 06/28/19 13:46 Dose: 999 munits/min, 999 mls/hr Ropivacaine (Naropin 0.2%) Confirm Administered Dose 100 mls @ as directed .ROUTE .[facility] ONE Stop: 06/28/19 10:32 Lidocaine HCl (Xylocaine 1%) 50 ml INJECT ONETIME PRN PRN Reason: Laceration repair Methylergonovine Maleate (Methergine) 0.2 mg IM ASDIRECTED PRN PRN Reason: Post Hemorrhage Misoprostol (Cytotec) 200 mcg PO ONETIME PRN PRN Reason: Post Hemorrhage Misoprostol (Cytotec) 25 mcg VAG ONETIME PRN PRN Reason: Cervical Ripening Misoprostol (Cytotec) 25 mcg VAG Q4H PRN PRN Reason: Cervical Ripening Last Admin: 06/28/19 04:53 Dose: 25 mcg Misoprostol (Cytotec) 25 mcg PO Q4H [facility] Last Admin: 06/28/19 04:52 Dose: 25 mcg Nalbuphine HCl (Nubain) 10 mg IVPUSH Q1H PRN PRN Reason: Pain (severe 7-10) Ropivacaine (Naropin 0.2%) Confirm Administered Dose 20 ml .ROUTE .[facility] ONE Stop: 06/28/19 10:32 Sodium Chloride (Saline Flush) 10 ml FLUSH ASDIRECTED PRN PRN Reason: Keep Vein Open Sodium Chloride (Saline Flush) 2.5 ml FLUSH ASDIRECTED PRN PRN Reason: Keep Vein Open Sodium Chloride (Normal Saline) 10 ml IV ASDIRECTED PRN PRN Reason: IV Use Sterile Water (Sterile Water For Irrigation) 1,000 ml IRR ASDIRECTED PRN PRN Reason: delivery Terbutaline Sulfate (Brethine) 0.25 mg SUBCUT ASDIRECTED PRN PRN Reason: Tacysystole - Interaction Disposition, : [place] in Room with Family Infant Interaction: Holding Infant Feeding: Bottle Fed Infant Support Person: Significant Other - Recovery Exam Fundal Tone: Firm Fundal Level: 1 Fingerbreadths Below Umbilicus Fundal Placement: Midline Lochia Amount: Small Lochia Color: Rubra/Red Perineum Description: Intact, Minimal Bruising/Swelling Episiotomy/Laceration: None Bladder Status: Voiding Urinary Elimination: Voided - Exam General: Alert, Oriented, Cooperative, No Acute Distress Lungs: Normal Respiratory Effort GI/Abdominal Exam: Soft, Non-Tender Extremities: Normal Inspection, Normal Range of Motion, Non-Tender, Normal Capillary Refill Skin: Warm, Dry, Intact Neurological: No New Focal Deficit Psy/Mental Status: Alert, Normal Affect, Normal Mood - Problem List & Annotations (1) (normal spontaneous vaginal delivery) SNOMED Code(s): 13954992, 627855066 Code(s): O80 - ENCOUNTER FOR FULL-TERM UNCOMPLICATED DELIVERY Status: Acute Priority: High Current Visit: Yes - Problem List Review Problem List Initiated/Reviewed/Updated: Yes - Plan Plan:: Delivery A: of viable female. APGARS 8/8, Wt: pending bonding. Intact, EBL 100cc. Stable P: Routine pp plan of care. PP Day 1 A: Ambulating, urinating, and eating well. Reports improving perineal swelling. Bottle feeding . Considering whether she wants to go home today or stay one more night. P: Routine plan of care.
--- NOTE | 2019-06-29 12:23 | PCM.DCSUM1 ---
Discharge Summary - Hospital Course Free Text/Narrative:: Discharge home with baby. Follow up in the clinic in 6 weeks for routine visit. Resume taking all pre- medication. Diagnosis: Stroke: No Modified Lebeau Scale: No Symptoms at All Modified Sin Scale Score: 0 - Discharge Data Discharge Date: 06/29/19 Discharge Disposition: Home, Self-Care 01 Condition: Good - Referral to Home Health Primary Care Physician: PCP None - Discharge Diagnosis/Problem(s) (1) (normal spontaneous vaginal delivery) SNOMED Code(s): 97742896, [id number] ICD Code: O80 - ENCOUNTER FOR FULL-TERM UNCOMPLICATED DELIVERY Status: Acute Priority: High Current Visit: Yes - Patient Instructions Diet: Regular Diet as Tolerated, Drink 8-10+ Glasses/Day Activity: As Tolerated, No Strenuous Activities, Rest and Relax Today Driving: May Drive Today Showering/Bathing: May Shower Wound/Incision Care: Keep Operative Site/Wound Site Clean and Dry Notify Provider of: Fever, Increased Pain, Swelling and Redness, Drainage, Nausea and/or Vomiting - Discharge Plan *PRESCRIPTION DRUG MONITORING PROGRAM REVIEWED*: Not Applicable *COPY OF PRESCRIPTION DRUG MONITORING REPORT IN PATIENT LAURA: Not Applicable Prescriptions/Med Rec: Ibuprofen [Motrin] 800 mg PO Q6H PRN #90 tablet PRN Reason: Pain Home Medications: Home Meds levETIRAcetam [Keppra] 750 mg PO TID 12/08/18 [History] Pnv No.95/Ferrous Fum/Folic AC [ Vitamins Tablet] 1 tab PO DAILY [History] carBAMazepine 200 mg PO TID 05/29/19 [History] Ibuprofen [Motrin] 800 mg PO Q6H PRN #90 tablet 06/29/19 [Rx] Oxygen Therapy Mode: Room Air Referrals: [facility] [Outside] Susan Richardson CNM [Mid-] - 08/08/19 2:15 pm - Discharge Summary/Plan Comment DC Time >30 min.: Yes - General Info Date of Service: 06/29/19 Functional Status: Reports: Pain Controlled, Tolerating Diet, Ambulating, Urinating - Review of Systems General: Reports: No Symptoms HEENT: Reports: No Symptoms Pulmonary: Reports: No Symptoms Cardiovascular: Reports: No Symptoms Gastrointestinal: Reports: No Symptoms Genitourinary: Reports: No Symptoms Musculoskeletal: Reports: No Symptoms Skin: Reports: No Symptoms Neurological: Reports: No Symptoms Psychiatric: Reports: No Symptoms - Patient Data Vitals - Most Recent: Last Vital Signs Temp 97.9 F 06/29/19 04:00 Pulse 71 06/29/19 04:00 Resp 16 06/29/19 04:00 BP 105/77 06/29/19 04:00 Pulse Ox 96 06/29/19 04:00 Weight - Most Recent: 190 lb Lab Results - Last 24 hrs: Laboratory Results - last 24 hr 06/29/19 Range/Units 05:48 Hgb 11.3 L (12.0-16.0) g/dL Hct 35.4 L (36.0-46.0) % Med Orders - Current: Current Medications Acetaminophen (Tylenol Extra Strength) 500 mg PO Q4H PRN PRN Reason: Pain Acetaminophen (Tylenol Extra Strength) 1,000 mg PO Q4H PRN PRN Reason: Pain Last Admin: 06/29/19 03:08 Dose: 1,000 mg Benzocaine/Menthol (Dermoplast Pain Relief 20%-0.5% [place]) 78 gm TOP ASDIRECTED PRN PRN Reason: Perineal Comfort Measure Bisacodyl (Dulcolax) 10 mg RECTAL ONETIME PRN PRN Reason: Constipation Carbamazepine (Tegretol Tab) 200 mg PO TID [facility] Last Admin: 06/29/19 06:27 Dose: 200 mg Docusate Sodium (Colace) 100 mg PO BID PRN PRN Reason: Constipation Last Admin: 06/28/19 20:40 Dose: 100 mg Emollient Ointment (Lansinoh Hpa) 0 gm TOP ASDIRECTED PRN PRN Reason: Sore Nipples Ibuprofen (Motrin) 400 mg PO Q4H PRN PRN Reason: Pain Ibuprofen (Motrin) 800 mg PO Q6H PRN PRN Reason: Pain Last Admin: 06/28/19 22:09 Dose: 800 mg Levetiracetam (Keppra) 750 mg PO TID [facility] Last Admin: 06/29/19 06:28 Dose: 750 mg Witch Angelica (Tucks) 1 pad TOP ASDIRECTED PRN PRN Reason: comfort care Discontinued Medications Butorphanol Tartrate (Stadol) 1 mg IVPUSH Q1H PRN PRN Reason: Pain Carboprost Tromethamine (Hemabate Ds) 250 mcg IM ASDIRECTED PRN PRN Reason: Post Hemorrhage Fentanyl (Sublimaze) Confirm Administered Dose 100 mcg .ROUTE .[facility] ONE Stop: 06/28/19 10:32 Lactated Ringer's (Ringers, Lactated) 1,000 mls @ 150 mls/hr IV ASDIRECTED [facility] Last Admin: 06/28/19 11:54 Dose: 150 mls/hr Oxytocin/Sodium Chloride (Oxytocin 30 Unit/500 Ml-Ns) 30 unit in 500 mls @ 500 mls/hr IV TITRATE [facility] Tranexamic Acid 1,000 mg/ (Sodium Chloride) 110 mls @ 660 mls/hr IV ONETIME PRN PRN Reason: Bleeding Oxytocin/Sodium Chloride (Oxytocin 30 Unit/500 Ml-Ns) 30 unit in 500 mls @ 2 mls/hr IV TITRATE [facility]; Protocol Last Titration: 06/28/19 13:46 Dose: 999 munits/min, 999 mls/hr Ropivacaine (Naropin 0.2%) Confirm Administered Dose 100 mls @ as directed .ROUTE .[facility] ONE Stop: 06/28/19 10:32 Lidocaine HCl (Xylocaine 1%) 50 ml INJECT ONETIME PRN PRN Reason: Laceration repair Methylergonovine Maleate (Methergine) 0.2 mg IM ASDIRECTED PRN PRN Reason: Post Hemorrhage Misoprostol (Cytotec) 200 mcg PO ONETIME PRN PRN Reason: Post Hemorrhage Misoprostol (Cytotec) 25 mcg VAG ONETIME PRN PRN Reason: Cervical Ripening Misoprostol (Cytotec) 25 mcg VAG Q4H PRN PRN Reason: Cervical Ripening Last Admin: 06/28/19 04:53 Dose: 25 mcg Misoprostol (Cytotec) 25 mcg PO Q4H [facility] Last Admin: 06/28/19 04:52 Dose: 25 mcg Nalbuphine HCl (Nubain) 10 mg IVPUSH Q1H PRN PRN Reason: Pain (severe 7-10) Ropivacaine (Naropin 0.2%) Confirm Administered Dose 20 ml .ROUTE .[facility] ONE Stop: 06/28/19 10:32 Sodium Chloride (Saline Flush) 10 ml FLUSH ASDIRECTED PRN PRN Reason: Keep Vein Open Sodium Chloride (Saline Flush) 2.5 ml FLUSH ASDIRECTED PRN PRN Reason: Keep Vein Open Sodium Chloride (Normal Saline) 10 ml IV ASDIRECTED PRN PRN Reason: IV Use Sterile Water (Sterile Water For Irrigation) 1,000 ml IRR ASDIRECTED PRN PRN Reason: delivery Terbutaline Sulfate (Brethine) 0.25 mg SUBCUT ASDIRECTED PRN PRN Reason: Tacysystole - Exam General: Reports: Alert, Oriented, Cooperative, No Acute Distress Lungs: Reports: Normal Respiratory Effort Cardiovascular: Reports: Regular Rate, Regular Rhythm GI/Abdominal Exam: Soft, Non-Tender (Female) Exam: Deferred Rectal (Female) Exam: Deferred Back Exam: Reports: Normal Inspection, Full Range of Motion Extremities: Normal Inspection, Normal Range of Motion, Non-Tender, Normal Capillary Refill Skin: Reports: Warm, Dry, Intact Neurological: Reports: No New Focal Deficit Psy/Mental Status: Reports: Alert, Normal Affect, Normal Mood
== END 2019-06-29 17:20 | disposition home or self-care (01) | DRG 807 ==
LOC: MW.OB 00:07 → MW.OBCHECK 00:07 → MW.OB 00:22 → MW.OBCHECK 00:22 → OBSVTOIN 13:46 → MW.OB 15:35
PROVIDERS: ADMIT Obstetrics & Gynecology; ATTEND Obstetrics & Gynecology
PROC: 10E0XZZ Delivery of Products of Conception, External Approach (ICD-10-PCS; principal; 2019-06-28)
PROC: 10907ZC Drainage of Amniotic Fluid, Therapeutic from Products of Conception, Via Natural or Artificial Opening (ICD-10-PCS; 2019-06-28)
PROC: 3E0R3BZ Introduction of Anesthetic Agent into Spinal Canal, Percutaneous Approach (ICD-10-PCS; 2019-06-28)
PROC: 00HU33Z Insertion of Infusion Device into Spinal Canal, Percutaneous Approach (ICD-10-PCS; 2019-06-28)
DX: O99.89 Other specified diseases and conditions complicating pregnancy, childbirth and the puerperium (principal); Z37.0 Single live birth; R56.9 Unspecified convulsions; O69.81X0 Labor and delivery complicated by cord around neck, without compression, not applicable or unspecified; Z3A.38 38 weeks gestation of pregnancy
CPT/HCPCS: 36410; 36415; 59025; 59409; 80156; 85014; 85018; 85027; 86592; 86593; 86850; 86900; 86901; A9270-GY; J2590; J7120

== ENCOUNTER 2020-01-21 15:30 | Emergency (ER) | payer MEDICAID ==
--- NOTE | 2020-01-21 15:59 | EDM.PDOC ---
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 Stated Complaint: VAGINAL BLEEDING Time Seen by Provider: 01/21/20 15:55 - Related Data Allergies Allergy/AdvReac Type Severity Reaction Status Date / Time No Known Allergies Allergy Verified 01/21/20 15:54 Home Meds: Home Meds levETIRAcetam [Keppra] 750 mg PO TID 12/08/18 [History] Pnv No.95/Ferrous Fum/Folic AC [ Vitamins Tablet] 1 tab PO DAILY 05/29/19 [History] carBAMazepine 200 mg PO TID 05/29/19 [History] Ibuprofen [Motrin] 800 mg PO Q6H PRN #90 tablet 06/29/19 [Rx] ED EXAM, GENERAL - Physical Exam (Female) Exam: Normal External Exam, Cervical Discharge (Cervix smooth, round os, not eroded. IUD strings protruding from os 3cm in length. Scant dark red blood in the vaginal vault) Departure - Departure Time of Disposition: 18:05 Disposition: Home, Self-Care 01 Condition: Good Clinical Impression: Bleeding after intercourse - Discharge Information *PRESCRIPTION DRUG MONITORING PROGRAM REVIEWED*: Not Applicable *COPY OF PRESCRIPTION DRUG MONITORING REPORT IN PATIENT LAURA: Not Applicable Instructions: Abnormal Uterine Bleeding, [id number] Referrals: PCP,None [Primary Care Provider] - Carlo Real MD [Physician] - Forms: ED Department Discharge Additional Instructions: The following information is given to patients seen in the emergency department who are being discharged to home. This information is to outline your options for follow-up care. We provide all patients seen in our emergency department with a follow-up referral. The need for follow-up, as well as the timing and circumstances, are variable depending upon the specifics of your emergency department visit. If you don't have a primary care physician on staff, we will provide you with a referral. We always advise you to contact your personal physician following an emergency department visit to inform them of the circumstance of the visit and for follow-up with them and/or the need for any referrals to a consulting specialist. The emergency department will also refer you to a specialist when appropriate. This referral assures that you have the opportunity for follow-up care with a specialist. All of these measure are taken in an effort to provide you with optimal care, which includes your follow-up. Under all circumstances we always encourage you to contact your private physician who remains a resource for coordinating your care. When calling for follow-up care, please make the office aware that this follow-up is from your recent emergency room visit. If for any reason you are refused follow-up, please contact the [facility] Emergency Department at and asked to speak to the emergency department charge nurse. 1. Follow up with HAT DESIGNER tomorrow. Call for appointment at number listed above. Dr. Real's office has been informed that you were seen in the emergency department today. <Brielle Randall - Last Filed: 01/22/20 10:33> ED HPI GENERAL MEDICAL PROBLEM - General Source of Information: Reports: Patient History Limitations: Reports: No Limitations - History of Present Illness INITIAL COMMENTS - FREE TEXT/NARRATIVE: HISTORY AND PHYSICAL: History of present illness: Patient is a 19-year-old female who presents to the emergency room today with concern of an episode of heavy bleeding following intercourse with her boyfri end. Patient states just prior to arrival to the ED she was having intercourse with her boyfriend when it was uncomfortable and she felt a large gush of blood. Patient states that it was "alot" but unable to quantify it. Patient states that she is not still currently bleeding or if she is it is light where she is not noticing it. Patient states initially she broke through 1 large pad. Patient states she does have an IUD and does not believe that it fell out but she is unsure. Patient states her last menstrual cycle was 2 weeks ago. Patient states she is having some lower abdominal cramping/discomfort she states which feels like a menstrual cycle. Patient states she has not taken anything for her symptoms. Patient denies fever, chills, chest pain, shortness of breath, or cough. Denies headache, neck stiff ness, change in vision, syncope, or near syncope. Denies nausea, vomiting, diarrhea, constipation, or dysuria. Has not noted any blood in urine or stool. Patient has been eating and drinking appropriately. Review of systems: As per history of present illness and below otherwise all systems reviewed and negative. Past medical history: As per history of present illness and as reviewed below otherwise noncontributory. Surgical history: As per history of present illness and as reviewed below otherwise noncontributory. Social history: See social history for further information Family history: As per history of present illness and as reviewed below otherwise noncontributory. Physical exam: General: Patient is alert, oriented, and in no acute distress. Patient sitting comfortably on exam table. Vitals stable and reviewed by me. HEENT: Atraumatic, normocephalic, pupils equal and reactive bilaterally, negative for conjunctival pallor or scleral icterus, mucous membranes moist, TMs normal bilaterally, throat clear, neck supple, nontender, trachea midline. No drooling or trismus noted. No meningeal signs. No hot potato voice noted. Lungs: Clear to auscultation, breath sounds equal bilaterally, chest nontender. Heart: S1S2, regular rate and rhythm without overt murmur Abdomen: Soft, nondistended, nontender. Negative for masses or hepatosplenomegaly. Negative for costovertebral tenderness. Pelvis: Stable nontender. Genitourinary: Deferred. Rectal: Deferred. Skin: Intact, warm, dry. No lesions or rashes noted. Extremities: Atraumatic, negative for cords or calf pain. Neurovascular unremarkable. Neuro: Awake, alert, oriented. Cranial nerves II through XII unremarkable. Cerebellum unremarkable. Motor and sensory unremarkable throughout. Exam nonfoca l. Notes: I have not been yet able to perform a pelvic exam due to the unavailability of a research animal facility supervisor at this time. Adelina Buck NP, has assumed care at 16:00 pending completion of all diagnostics, pelvic exam, and reexamination of patient. She will follow diagnostics and disposition for patient. Diagnostics: CBC, CMP, UA, Uhcg, Hcg quant, Rh/Blood type, TVUS Therapeutics: Prescription: Impression: Abnormal vaginal bleeding Plan: Definitive disposition and diagnosis as appropriate pending reevaluation and review of above. 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 Neurological History: Reports: Cerebral Palsy, Seizure Psychiatric History: Reports: Anxiety, Depression Endocrine/Metabolic History: Reports: None Hematologic History: Reports: None Immunologic History: Reports: None Oncologic (Cancer) History: Reports: None Dermatologic History: Reports: None - Infectious Disease History Infectious Disease History: Reports: None - Past Surgical History Head Surgeries/Procedures: Reports: None HEENT Surgical History: Reports: None Cardiovascular Surgical History: Reports: None Respiratory Surgical History: Reports: None GI Surgical History: Reports: None Female Surgical History: Reports: None Endocrine Surgical History: Reports: None Neurological Surgical History: Reports: None Musculoskeletal Surgical History: Reports: Other (See Below) Other Musculoskeletal Surgeries/Procedures:: achiles tendon lengthened left side Oncologic Surgical History: Reports: None Dermatological Surgical History: Reports: None Social & Family History - Family History Family Medical History: No Pertinent Family History - Caffeine Use Caffeine Use: Reports: Coffee ED ROS GENERAL - Review of Systems Review Of Systems: Comprehensive ROS is negative, except as noted in HPI. ED EXAM, GENERAL - Physical Exam Exam: See Below (see dictation) Course - Vital Signs Last Recorded V/S: Last Vital Signs Temp 96.7 F L 01/21/20 18:42 Pulse 69 01/21/20 18:42 Resp 18 01/21/20 18:42 BP 106/62 01/21/20 18:42 Pulse Ox 98 01/21/20 18:42 - Orders/Labs/Meds Labs: Laboratory Tests 01/21/20 01/21/20 01/21/20 Range/Units 16:14 16:14 16:14 WBC 8.00 (4.0-11.0) K/uL RBC 4.66 (4.30-5.90) M/uL Hgb 13.3 (12.0-16.0) g/dL Hct 40.3 (36.0-46.0) % MCV 86.5 (80.0-98.0) fL MCH 28.5 (27.0-32.0) pg MCHC 33.0 (31.0-37.0) g/dL RDW Std Deviation 41.2 (28.0-62.0) fl RDW Coeff of Lopez 13 (11.0-15.0) % Plt Count 188 (150-400) K/uL MPV 9.90 (7.40-12.00) fL Neut % (Auto) 60.1 (48.0-80.0) % Lymph % (Auto) 26.5 (16.0-40.0) % Victoria % (Auto) 11.8 (0.0-15.0) % Eos % (Auto) 1.6 (0.0-7.0) % Baso % (Auto) 0.0 (0.0-1.5) % Neut # (Auto) 4.8 (1.4-5.7) K/uL Lymph # (Auto) 2.1 (0.6-2.4) K/uL Victoria # (Auto) 0.9 H (0.0-0.8) K/uL Eos # (Auto) 0.1 (0.0-0.7) K/uL Baso # (Auto) 0.0 (0.0-0.1) K/uL Nucleated RBC % 0.0 /100WBC Nucleated RBCs # 0 K/uL Sodium 139 (136-145) mmol/L Potassium 4.5 (3.5-5.1) mmol/L Chloride 108 H (98-107) mmol/L Carbon Dioxide 23.1 (21.0-32.0) mmol/L BUN 12 (7.0-18.0) mg/dL Creatinine 0.8 (0.6-1.0) mg/dL Est Cr Clr Drug Dosing 143.78 mL/min Estimated GFR (MDRD) > 60.0 ml/min Glucose 92 (74-106) mg/dL Calcium 8.6 (8.5-10.1) mg/dL Total Bilirubin 0.2 (0.2-1.0) mg/dL AST 20 (15-37) IU/L ALT 21 (14-63) IU/L Alkaline Phosphatase 65 (46-116) U/L Total Protein 7.1 (6.4-8.2) g/dL Albumin 3.7 (3.4-5.0) g/dL Globulin 3.4 (2.6-4.0) g/dL Albumin/Globulin Ratio 1.1 (0.9-1.6) HCG, Quant < 1.0 mIU/mL Urine Color Urine Appearance Urine pH (5.0-8.0) Ur Specific [place] (1.001-1.035) Urine Protein (NEGATIVE) mg/dL Urine Glucose (UA) (NEGATIVE) mg/dL Urine Ketones (NEGATIVE) mg/dL Urine Occult Blood (NEGATIVE) Urine Nitrite (NEGATIVE) Urine Bilirubin (NEGATIVE) Urine Urobilinogen (<2.0) EU/dL Ur Leukocyte Esterase (NEGATIVE) Urine RBC (0-2/HPF) Urine WBC (0-5/HPF) Ur Epithelial Cells (NONE-FEW) Urine Bacteria (NEGATIVE) Urine HCG, Qual (NEGATIVE) Blood Type O POSITIVE 01/21/20 01/21/20 Range/Units 16:52 16:52 WBC (4.0-11.0) K/uL RBC (4.30-5.90) M/uL Hgb (12.0-16.0) g/dL Hct (36.0-46.0) % MCV (80.0-98.0) fL MCH (27.0-32.0) pg MCHC (31.0-37.0) g/dL RDW Std Deviation (28.0-62.0) fl RDW Coeff of Lopez (11.0-15.0) % Plt Count (150-400) K/uL MPV (7.40-12.00) fL Neut % (Auto) (48.0-80.0) % Lymph % (Auto) (16.0-40.0) % Victoria % (Auto) (0.0-15.0) % Eos % (Auto) (0.0-7.0) % Baso % (Auto) (0.0-1.5) % Neut # (Auto) (1.4-5.7) K/uL Lymph # (Auto) (0.6-2.4) K/uL Victoria # (Auto) (0.0-0.8) K/uL Eos # (Auto) (0.0-0.7) K/uL Baso # (Auto) (0.0-0.1) K/uL Nucleated RBC % /100WBC Nucleated RBCs # K/uL Sodium (136-145) mmol/L Potassium (3.5-5.1) mmol/L Chloride (98-107) mmol/L Carbon Dioxide (21.0-32.0) mmol/L BUN (7.0-18.0) mg/dL Creatinine (0.6-1.0) mg/dL Est Cr Clr Drug Dosing mL/min Estimated GFR (MDRD) ml/min Glucose (74-106) mg/dL Calcium (8.5-10.1) mg/dL Total Bilirubin (0.2-1.0) mg/dL AST (15-37) IU/L ALT (14-63) IU/L Alkaline Phosphatase (46-116) U/L Total Protein (6.4-8.2) g/dL Albumin (3.4-5.0) g/dL Globulin (2.6-4.0) g/dL Albumin/Globulin Ratio (0.9-1.6) HCG, Quant mIU/mL Urine Color YELLOW Urine Appearance CLEAR Urine pH 6.0 (5.0-8.0) Ur Specific [place] 1.020 (1.001-1.035) Urine Protein NEGATIVE (NEGATIVE) mg/dL Urine Glucose (UA) NEGATIVE (NEGATIVE) mg/dL Urine Ketones NEGATIVE (NEGATIVE) mg/dL Urine Occult Blood LARGE H (NEGATIVE) Urine Nitrite NEGATIVE (NEGATIVE) Urine Bilirubin NEGATIVE (NEGATIVE) Urine Urobilinogen 0.2 (<2.0) EU/dL Ur Leukocyte Esterase NEGATIVE (NEGATIVE) Urine RBC 4-6 (0-2/HPF) Urine WBC 0-1 (0-5/HPF) Ur Epithelial Cells FEW (NONE-FEW) Urine Bacteria FEW (NEGATIVE) Urine HCG, Qual NEGATIVE (NEGATIVE) Blood Type Sepsis Event Note (ED) - Evaluation Sepsis Screening Result: No Definite Risk
[2020-01-21 17:05] LABS: BLOOD UREA NITROGEN,BUN 12 mg/dL (7.0-18.0); CARBON DIOXIDE,CO2 23.1 mmol/L (21.0-32.0); CHLORIDE,CL 108 mmol/L (98-107); GLUCOSE RANDOM 92 mg/dL (74-106); POTASSIUM,K 4.5 mmol/L (3.5-5.1); SODIUM,NA 139 mmol/L (136-145)
--- NOTE | 2020-01-21 17:57 | US ---
CLINICAL HISTORY: Bleeding post intercourse TECHNIQUE: Real time, valdez scale images were acquired of the pelvis using a transabdominal and transvaginal approach. Color Doppler analysis was performed of the ovaries. FINDINGS: Uterus measures 5.4 x 5.5 x 3.8 centimeters. Endometrial stripe measures 5 millimeters. IUD in the endometrial cavity appeared satisfactory position. Right ovary measures 2.6 x 1.9 x 3.7 centimeters normal blood flow to the right ovary corpus luteum cyst right ovary. Left ovary measures 1.4 x 2.7 with normal blood flow. Small cyst in the right ovary measuring 1.8 x 1.1 x 1.6 centimeters. Mild to moderate amount of free fluid in the pelvis. IMPRESSION: 1. IUD in the uterus in a satisfactory position. 5 millimeter endometrial stripe. 2. Right ovarian simple cysts ovaries are otherwise unremarkable. Small to moderate amount of free fluid in the pelvis. Dictated by Margo Mcelroy MD @ Jan 21 2020 5:48PM Signed by Dr. Margo Mcelroy @ Jan 21 2020 5:55PM
[2020-01-21 18:43] VITALS: BP 106/62; PULSE 69
== END 2020-01-21 18:34 | disposition home or self-care (01) ==
LOC: MW.ED 15:30
DX: N93.0 Postcoital and contact bleeding (principal)
CPT/HCPCS: 36415; 76830; 76830-26; 80053; 81001; 81025; 84702; 85025; 86900; 86901; 99282; 99284-25

== ENCOUNTER 2021-09-20 17:27 | Emergency (ER) | payer MEDICARE, MEDICAID ==
[2021-09-20 19:45] VITALS: BP 113/78
[2021-09-20 19:59] VITALS: PULSE 87
== END 2021-09-20 19:59 | disposition home or self-care (01) ==
LOC: MW.ED 17:27
DX: U07.1 COVID-19 (principal)
CPT/HCPCS: 99283; U0002; 99282

== ENCOUNTER 2022-07-31 19:02 | Emergency (ER) | payer MEDICARE, MEDICAID ==
[2022-07-31] MEDS ORDERED: Clindamycin HCl 150 MG Cap PO ONE (20:32)
[2022-07-31] MEDS ORDERED: Benzocaine 20% Topical Spray UD MUCMEM ONE (20:32)
[2022-07-31] MEDS ORDERED: Acetaminophen/HYDROcodone 325-5 MG Tab PO ONE (20:53)
[2022-07-31 21:47] VITALS: BP 121/73; PULSE 67
== END 2022-07-31 21:47 | disposition home or self-care (01) ==
LOC: MW.ED 19:02
DX: K04.7 Periapical abscess without sinus (principal)
CPT/HCPCS: 41800; 99282; A9270